=== PATIENT | female | born 1980 | race Caucasian/White ===

== ENCOUNTER → 2017-12-14 | Outpatient (CLI) | payer OTHER ==
[~2017-12-14] MED LIST: CEPH-368 PO; CETI-158 PO; GADOBUTROL 10 MMOL/10 ML VIAL ONE; ONDA4TAB7 PO; OXYC-302 PO; SODI1TAB30 PO
== END | disposition home or self-care (01) ==
LOC: CFH 09:45
PROVIDERS: ATTEND Surgery
DX: N64.4 Mastodynia (principal); Z85.3 Personal history of malignant neoplasm of breast; Z90.13 Acquired absence of bilateral breasts and nipples
CPT/HCPCS: A9585; C8908

== ENCOUNTER → 2018-07-26 | Outpatient (CLI) | payer OTHER ==
[~2018-07-26] MED LIST changes: -GADOBUTROL 10 MMOL/10 ML VIAL ONE
== END | disposition home or self-care (01) ==
LOC: RAD 15:45 → EDSTATUS 16:00
PROVIDERS: ATTEND Surgery
DX: R19.00 Intra-abdominal and pelvic swelling, mass and lump, unspecified site (principal)
CPT/HCPCS: 76705

== ENCOUNTER → 2020-09-09 | Outpatient (CLI) | payer OTHER ==
[~2020-09-09] MED LIST changes: +ARNICA MONTANA PO; +[UNRECOGNIZED DRUG - OTHER] PO
[2020-09-09 14:34] LABS: BASOPHILS % (AUTO) 1 % (0-1); EOSINOPHILS % (AUTO) 0 % (1-7); LYMPHOCYTES % (AUTO) 13 % (22-44); MEAN CORPUSCULAR HEMOGLOBIN 30.6 pg (27.0-34.8); MEAN CORPUSCULAR HGB CONC 33.5 g/dL (32.4-35.8); MEAN PLATELET VOLUME 7.8 fL (7.4-10.4); MONOCYTES % (AUTO) 7 % (2-9); NEUTROPHILS % (AUTO) 80 % (42-75); PLATELET COUNT 401 x10^3/uL (130-400); RED BLOOD COUNT 4.53 x10^6/uL (3.82-5.3); RED CELL DISTRIBUTION WIDTH 12.8 % (9.6-15.2)
[2020-09-09 14:35] LABS: MICROSCOPIC NOT IND
[2020-09-09 14:39] LABS: ALANINE AMINOTRANSFERASE 14 U/L (12-78); ALBUMIN 4.3 g/dL (3.4-5.0); ANION GAP 7 mmol/L (5-15); CHLORIDE 108 mmol/L (98-107); CREATININE 1.09 mg/dL (0.55-1.02)
[2020-09-09 14:40] LABS: MD NO
[2020-09-09 14:42] LABS: ALKALINE PHOSPHATASE 69 U/L (45-117); BILIRUBIN,TOTAL 0.3 mg/dL (0.2-1.0); TOTAL PROTEIN 8.1 g/dL (6.4-8.2)
== END | disposition home or self-care (01) ==
LOC: STAR 13:04
PROVIDERS: ATTEND Specialist
DX: Z01.812 Encounter for preprocedural laboratory examination (principal); Z20.828 Contact with and (suspected) exposure to other viral communicable diseases
CPT/HCPCS: 36415; 80053; 81003; 85025; 87635